=== PATIENT | male | born 1955 | race Caucasian/White ===

== ENCOUNTER 2023-04-01 08:07 | Outpatient (CLI) | payer OTHER, SELFPAY | END 2023-04-01 08:08 | disposition home or self-care (01) | PROVIDERS: PCP Family Medicine; Visit Provider Family Medicine | DX: E13.9 Other specified diabetes mellitus without complications (principal); I10 Essential (primary) hypertension; E78.5 Hyperlipidemia, unspecified; R97.20 Elevated prostate specific antigen [PSA]; Z13.0 Encounter for screening for diseases of the blood and blood-forming organs and certain disorders involving the immune mechanism; Z80.42 Family history of malignant neoplasm of prostate | CPT/HCPCS: 80048; 80061; 84153 ==

== ENCOUNTER 2023-10-17 14:18 | Outpatient (CLI) | payer OTHER, SELFPAY ==
--- OUTSIDE RECORDS SUMMARY | 2023-10-17 14:23 | XMS_ITS | Clinical Summary ---
Author Name Unknown Organization [facility] Address [address] [place] [address] Care Team Providers Care Finishing Pan Operator Name Role Phone Unavailable Primary Care Provider Unavailabl e Source Comments Patient records contain information from all sites at [facility]. For routine questions regarding patient records, call [phone] during business hours, M-F 8:00 AM - 5:00 PM Central Time. Record requests for emergency care only can be directed to [phone] at any time.[facility] Allergies No known active allergies Medications Medication Sig Dispensed Refills Start Date End Date Status amLODIPine (NORVASC) 10 mg tablet Take 10 mg by mouth daily. 04/14/2023 Active atenoloL (TENORMIN) 50 mg tablet Take 1 tablet by mouth daily. 01/30/2023 Active Trulicity 3 mg/0.5 mL injection Inject 3 mg under the skin every 7 (seven) days. 03/28/2023 Active hydroCHLOROthiazide (HYDRODIURIL) 25 mg tablet Take 1 tablet by mouth 2 (two) times a day. 03/27/2023 Active lisinopriL (PRINIVIL,ZESTRIL) 40 mg tablet Take 40 mg by mouth daily. 01/30/2023 Active metFORMIN (GLUCOPHAGE) 1,000 mg tablet Take 1,000 mg by mouth 2 (two) times a day with meals. 01/30/2023 Active repaglinide (PRANDIN) 2 mg tablet Take 2 mg by mouth 2 (two) times a day before breakfast and dinner. 04/14/2023 Active simvastatin (ZOCOR) 20 mg tablet Take 20 mg by mouth at bedtime. 04/14/2023 Active pioglitazone (ACTOS) 15 mg tablet Take 15 mg by mouth daily. 02/02/2023 Active Active Problems Problem Noted Date Diagnosed Date Primary Malignant Neoplasm Of Prostate 3 Cancer Staging:Clinical stage from 05/09/2023:Stage Unknown(cT2a, cNX, cM0, PSA: 6.8, Grade Group: 1) - Signed by Greer Sarah APRN, C.N.P. on 06/06/2023 Hypertension Essential Primary 05/13/2023 Elevated Prostate-Specific Antigen 05/13/2023 Hyperlipidemia 05/13/2023 Other Specified Diabetes Mellitus Without Compli cations 05/13/2023 Pityriasis Versicolor 05/13/2023 Immunizations Name Administration Dates Next Due Influenza high dose QV(65 years or older) (PF) 1 Influenza, Injectable, Quadrivalent 04/20/2021,1 08/14/2018 PPSV23(Discontinued) 10/29/2009 RZV (SHINGRIX) 04/01/2023,04/20/2021 Td (Adult), adsorbed 06/13/2019 Td Preservative Free (TENIVAC, DECAVAC) 06/13/20 19 Tdap 10/29/2009 influenza vaccine QV(FLUBLOK) (18 years or older ) (PF) 04/20/2021,06/13/2019 influenza vaccine quad (FLUZ ONE/FLUARIX) (6 months and older)(PF) 05/05/2018,05/14/2015 Social History Tobacco Use Types Packs/Day Years Used Date Smoking Tobacco: Former Cigarettes 0.3 6 0 06/27/1965 - 06/27/1971 Pipe 06/27/1965 - 0 06/27/1971 Cigars 06/27/1965 - 0 06/27/1971 Smokeless Tobacco: Never Tobacco Cessation:Counseling Given: Not Answered Alcohol Use Standard Drinks/Week Comments Not Currently 0 (1 standard drink = 0.6 oz pur e alcohol) Nutrition Answer Date Recorded Nutrition: EVOO Fat Source Unknown 04/11 Nutrition: Servings of Fruits/Vegetables per Day Not on file 04/11/2023 Dental Answer Date Recorded Dental: Regular Dentist Unknown 04/11/20 23 Sex and Gender Information Value Date Recorded Sex Assigned at Not on file Gender Identity Not on file Sexual Orientation Not on file Plan of Treatment Upcoming Encounters Date Type Department Care Team (Late st Contact Info) Description 11/04/2023 8:30 AM CDT Appointment Department of Laboratory Medicine in [address] [phone] Greer Sarah APRN, C.N.P. [address] [place] [phone] 11/14/2023 1:30 PM CDT Office Visit Department of Urology in [place], [place] [address] [facility] [phone] Greer Sarah APRN, C.N.P. [address] [place] [phone] Health Maintenance Due Date Last Done Comments Abdominal Aortic Aneurysm (A AA) Screen 1956 CT Colonography 1956 Cologuard 1956 Colonoscopy 1956 Colorectal Cancer Screening 1956 Creatinine Level (Kidney Fun ction Test) 1956 Diabetic Office Visit with F oot Exam 1956 Dilated Eye Exam 1956 FIT 1956 Hemoglobin A1C 1956 Hepatitis C Screening 1956 Lipid (Cholesterol) Screening 1956 Office Visit for Blood Press ure Check / Re-check 1956 Potassium Level 1956 Sodium Level 1956 Urine Albumin 1956 Pneumococcal vaccine (65+ ye ars) (2 of 2 - PCV) 10/29/2010 10/29/2009 Hepatitis B Vaccines (1 of 3 - Risk 3-dose series) 2016 COVID-19 Vaccine (2 - 2022-2 4 season) 2023 01/26/2021 Depression Screening (Annual PHQ-2) 06/27/2023 Fall Risk Screen (Annual) 06/27/2023 DTaP,Tdap,and Td Vaccines (4 - Td or Tdap) 06/13/2029 06/13/2019, 06/13/2019, 10/29/2009 Influenza Vaccine Completed 04/01/2023, , 04/20/2021, Additional history exists Zoster Vaccines Completed 04/01/2023, 04/20/2021
--- OUTSIDE RECORDS SUMMARY | 2023-10-17 14:24 | XMS_ITS ---
Author Name Unknown Organization [facility] Address [address] [place] [address] Care Team Providers Care Postal Support Employee Name Role Phone Unavailable Unavailable Unavailable Surgery Details Not on file Complications Check Surgery Details section. Procedure Estimated Blood Loss Check Surgery Details section. Procedure Findings Check Surgery Details section. Procedure Specimens Taken Check Surgery Details section.
--- OUTSIDE RECORDS SUMMARY | 2023-10-17 14:24 | XMS_ITS | Referral Summary ---
Author Name Unknown Organization [facility] Address [address] [place] [address] Care Team Providers Care Calender Runner Name Role Phone Unavailable Primary Care Provider Unavailabl e Source Comments Patient records contain information from all sites at [facility]. For routine questions regarding patient records, call [phone] during business hours, M-F 8:00 AM - 5:00 PM Central Time. Record requests for emergency care only can be directed to [phone] at any time.[facility] Allergies No known active allergies Medications [...] CDT Appointment Department of Laboratory Medicine in [address] [phone] Greer Sarah APRN, C.N.P. [address] [place] [phone] 11/14/2023 1:30 PM CDT Office Visit Department of Urology in [place], [place] [address] [facility] [place] [phone] Greer Sarah APRN, C.N.P. [address] [place] [phone]
== END 2023-10-17 14:19 | disposition home or self-care (01) ==
PROVIDERS: PCP Family Medicine; Visit Provider Family Medicine
DX: I10 Essential (primary) hypertension (principal); R42 Dizziness and giddiness
CPT/HCPCS: 80048; 84443

== ENCOUNTER 2023-11-16 16:05 | Outpatient (CLI) | payer OTHER, SELFPAY ==
--- OUTSIDE RECORDS SUMMARY | 2023-11-20 08:36 | XMS_ITS | Referral Summary ---
Author Organization [facility] Address [address] [place] [address] Care Team Providers Care Automatic Line Set Up Mechanic Name Role Phone Unavailable Primary Care Provider Unavailabl e Source Comments Patient records contain information from all sites at [facility]. For routine questions regarding patient records, call [phone] during business hours, M-F 8:00 AM - 5:00 PM Central Time. Record requests for emergency care only can be directed to [phone] at any time.[facility] Encounters Date Type Department Care Team Description 11/14/2023 1:30 PM CDT Office Visit Department of Urology in [address] [address] Greer Sarah APRN, C.N.P. Primary Malignant Neoplasm Of Prostate (HCC) (Primary Dx); Elevated Prostate-Specific Antigen 11/04/2023 8:07 AM CDT - 11/04/2023 11:59 PM CDT Hospital Encounter Department of Laboratory Medicine in [address] [address] Greer Sarah APRN, C.N.P. Primary Malignant Neoplasm [...] drink = 0.6 oz pur e alcohol) [facility] Utilities Answer Date Recorded In the past 12 months has th e [employer], gas, oil, or water [employer] threatened to shut off services in your [...] your living situation today? I have a [facility] place to live 11/11/2023 Sex and [...] method is an electrochemiluminescence assay manufactured by [employer] and performed on the Modular or Roopa system. Values obtained with different assay methods or kits may be different and cannot be used interchangeably. Test results cannot be interpreted as absolute evidence for the presence or absence of malignant disease. Blood (Blood, Venous) 11/04/2023 10:01 AM CDT 11/04/2023 3:22 PM CDT Greer Sarah APRN, C.N.P. LAB BLOOD ADD-ON [facility] [address] [place] [address], [facility] OW[facility] [place] [address] [place] [address] from Last 3 Months
--- OUTSIDE RECORDS SUMMARY | 2023-11-20 08:36 | XMS_ITS | Clinical Summary ---
Author Organization [facility] Address [address] [place] [address] Care Team Providers Care Crowning Hammer Operator Name Role Phone Unavailable Primary Care Provider Unavailabl e Source Comments Patient records contain information from all sites at [facility]. For routine questions regarding patient records, call [phone] during business hours, M-F 8:00 AM - 5:00 PM Central Time. Record requests for emergency care only can be directed to [phone] at any time.[facility] Allergies No known active allergies Medications [...] CDT Office Visit Department of Urology in [address] [address] Greer Sarah APRN, C.N.P. Primary Malignant Neoplasm Of Prostate (HCC) (Primary Dx); Elevated Prostate-Specific Antigen 11/04/2023 8:07 AM CDT - 11/04/2023 11:59 PM CDT Hospital Encounter Department of Laboratory Medicine in [address] [address] Greer Sarah APRN, C.N.P. Primary Malignant Neoplasm [...] drink = 0.6 oz pur e alcohol) [facility] Utilities Answer Date Recorded In the past 12 months has e [employer], gas, oil, or water [employer] threatened to shut off services in your [...] your living situation today? I have a [facility] place to live 11/11/2023 Sex [...] Greer Sarah APRN, C.N.PJuan LAB BLOOD ADD-ON [facility] [address] [place] [address], [facility] OW[facility] [place] [address] [place] [address] from Last 3 Months
--- OUTSIDE RECORDS SUMMARY | 2023-11-20 08:36 | XMS_ITS ---
Author Organization [facility] Address [address] [place] [address] Care Team Providers Care Plastic Products Sales Representative Name Role Phone Unavailable Unavailable Unavailable Surgery Details Not on file Complications Check Surgery Details section. Procedure Estimated Blood Loss Check Surgery Details section. Procedure Findings Check Surgery Details section. Procedure Specimens Taken Check Surgery Details section.
--- OUTSIDE RECORDS SUMMARY | 2023-11-20 08:36 | XMS_ITS | Encounter Summary ---
Author Organization [facility] Address [address] [place] [address] Care Team Providers Care Solutions Specialist Name Role Phone Unavailable Primary Care Provider Unavailabl e Reason for Referral * Outpatient (Routine) - Authorized Specialty Diagnoses / Procedures Referred By Antonino stevens Referred To Contact Urology Greer Sarah APRN, C.N.P. [address] [address] [facility] Region Referral ID Status Reason Start Date Expiration Date V isits Requested Visits Authorized [id number] Authorized 11/14/2023 05/15/2025 1 1 Reason for Visit * Reason Comments Follow-up 6 month Prostate Cancer * Outpatient (Routine) - Closed Specialty Diagnoses / Procedures Referred By Antonino stevens Referred To Contact Urology Greer Sarah APRN, C.N.P. [address] [address] [facility] Region Referral ID Status Reason Start Date Expiration Date Visits Re quested Visits Authorized [id number] Closed 05/13/2023 05/12/2026 1 1 Encounter Details Date Type Department Care Team (Late st Contact Info) Description 11/14/2023 1:30 PM CDT Office Visit Department of Urology in [place] [address] [place] [phone] Greer Sarah APRN, C.N.P. [address] [address] Primary Malignant Neoplasm Of Prostate [...] drink = 0.6 oz pur e alcohol) [facility] Utilities Answer Date Recorded In the past 12 months has th e [employer], gas, oil, or water [employer] threatened to shut off services in your [...] 2023 that showed a small amount of [place] 3 + 3 prostate cancer on the [...]
--- OUTSIDE RECORDS SUMMARY | 2023-11-20 08:36 | XMS_ITS | Encounter Summary ---
Author Organization [facility] Address [address] [place] [address] Care Team Providers Care Glazier Supervisor Name Role Phone Unavailable Primary Care Provider Unavailabl e Encounter Details Date Type Department Care Team (Latest Contact Info) Description 11/04/2023 8:07 AM CDT - 11/04/2023 11:59 PM CDT Hospital Encounter Department of Laboratory Medicine in [address] [id number] Greer Sarah, MARINE ENGINEER [employer], C.N.P. [address] [address] Primary Malignant Neoplasm Of Prostate (HCC) Discharge [...] Greer Sarah APRN, C.N.P. LAB BLOOD ADD-ON [facility] [address], [place] [address], [facility] [facility] in [place] [address] [place] [address] documented in this encounter Visit Diagnoses Diagnosis Primary Malignant Neoplasm Of Prostate (HCC) documented in this encounter
== END 2023-11-16 16:06 | disposition home or self-care (01) ==
LOC: AMB 11-20 08:34
PROVIDERS: PCP Family Medicine; Visit Provider Emergency Medicine
DX: R55 Syncope and collapse (principal)
CPT/HCPCS: A0425; A0427

== ENCOUNTER 2023-11-16 16:35 | Emergency (ER) | payer OTHER, SELFPAY ==
[2023-11-16] VITALS (19 sets, daily range): BP systolic 108–145; BP diastolic 64–86; PULSE 78–92; RESP 16–18; TEMP 36.2; O2SAT 93–98; BMI 28.3
[2023-11-16 16:58] LABS: Lactate* 3.9 mmol/L (0.5-1.9)
[2023-11-16 16:59] LABS: Basophils Percent Auto 0.3 % (0.0-3.0); Eosinophils Percent Auto 2.4 % (0.0-7.0); Hematocrit 45.6 % (37.0-53.0); Hemoglobin* 15.1 gm/dL (13.5-17.5); Immature Granulocytes Pct Auto 1.5 %; Lymphocytes Percent Auto 16.9 % (20-44); Mean Corpuscular HGB Conc 33 gm/dL (32-36); Mean Corpuscular Hemoglobin 29 pg (26-34); Mean Corpuscular Volume 88 fL (80-100); Monocytes Percent Auto 7.7 % (0.0-11.0); Neutrophils Percent Auto 71.2 % (42.0-72.0); Platelet Count* 200 K/uL (140-440); RDW Coefficient of Variation % 13.8 % (11.5-15.5); Red Blood Count 5.18 m/uL (4.30-5.90); White Blood Count* 11.63 K/uL (4.50-11.00)
--- NOTE | 2023-11-16 17:01 | CRLHL7_ITS ---
For Patients: As a result of the Century Cures Act, medical imaging exams and procedure reports are released immediately into your electronic medical record. You may view this report before your referring provider. If you have questions, please contact your health care provider. Indication: Neck pain. Syncopal episode. Trauma. Technique: Noncontrast axial CT of the cervical spine with coronal and sagittal reformats are provided. No comparisons. Findings: The overall stature, alignment of the cervical spine is within normal limits. No convincing evidence of suspicious bony fragments narrowing the central canal or neural foramina. Prevertebral soft tissues, cervical airway, dens and lateral masses are within normal limits. Moderate to severe scattered degenerative changes of the cervical spine. Impression: 1. No convincing radiographic evidence of acute osseous injury. 2. Moderate to severe scattered degenerative changes of the cervical spine. Please note that all CT scans at this facility use dose modulation, iterative reconstruction, and/or weight-based dosing when appropriate to reduce radiation dose to as low as reasonably achievable. Dictated by James Rivera MD @ 11/16/2023 6:04:47 PM (Electronically Signed)
--- NOTE | 2023-11-16 17:01 | CRLHL7_ITS ---
For Patients: As a result of the Century Cures Act, medical imaging exams and procedure reports are released immediately into your electronic medical record. You may view this report before your referring provider. If you have questions, please contact your health care provider. INDICATION: Syncopal episode TECHNIQUE: Non-contrast CT of the head is submitted. No comparisons. FINDINGS: The ventricles, sulci and gyri are of normal size, shape and contour. Midline structures are centrally located. No convincing evidence of intra- or extra-axial fluid collections. IMPRESSION: 1. No radiographic evidence of acute intracranial abnormalities. Please note that all CT scans at this facility use dose modulation, iterative reconstruction, and/or weight-based dosing when appropriate to reduce radiation dose to as low as reasonably achievable. Dictated by James Rivera MD @ 11/16/2023 6:03:02 PM (Electronically Signed)
[2023-11-16 17:04] LABS: Glucose, Point-of-Care* 195 mg/dl (60-115)
[2023-11-16 17:10] LABS: Slide Review Reflex No
[2023-11-16 17:19] LABS: Chloride* 102 mmol/L (96-114); Sodium* 138 mmol/L (135-149)
[2023-11-16] MEDS: LACTATED RINGERS 1000 ML 1,000 ML IV (17:19)
[2023-11-16 17:20] LABS: Potassium* 3.8 mmol/L (3.6-5.1)
[2023-11-16 17:22] LABS: Alanine Aminotransferase* 19 U/L (4-50); Alkaline Phosphatase* 57 U/L (40-150); Anion Gap 13 mEq/L (7-15); Aspartate Amino Transferase* 24 U/L (12-35); Bilirubin Total* 0.8 mg/dL (0.1-1.5); Blood Urea Nitrogen* 29 mg/dL (7-30); Carbon Dioxide* 23 mmol/L (20-32); Creatinine* 1.2 mg/dL (0.5-1.5); Est. Creatinine Clearance* 57.79; Estimated Glomerular Filt Rate 66 ml/min; Glucose* 197 mg/dL (60-115); Total Protein* 7.9 g/dL (6.0-8.3)
[2023-11-16 17:23] LABS: Calcium* 9.5 mg/dL (8.4-10.6)
--- NOTE | 2023-11-16 17:32 | ED.SYNCOPE ---
HPI - Syncope General Chief Complaint: Syncope/Fainted Stated Complaint: loss of consciousness Time Seen by Provider: 11/16/23 16:40 Source: patient and EMS Mode of arrival: EMS Limitations: no limitations History of Present Illness HPI narrative: Patient is a 68-year-old male with a history of type 2 diabetes, hypertension, hyperlipidemia presenting to the emergency department for an episode syncope. 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 He walked back inside and the time he got to 1 of the trucks he passed out. He states this was witnessed by 1 of his coworkers. He is unsure how long he was unconscious for. He felt kind of groggy when he woke up but is now back to normal. EMS states he was answering all questions appropriately. He states this happened to him 3 or 4 times in the past in says it was heat stroke. Last time it occurred was 15 years ago. States that felt just like this. It is only about 69? F outside. Denies lightheadedness, dizziness, fevers, chills, chest pain, shortness of breath, abdominal pain, weakness, numbness. States he feels back to normal at this time. Related Data Previous Rx's ?Medication ?Instructions ?Recorded amlodipine 10 mg tablet 10 mg PO DAILY #90 tabs 04/01/23 atenolol 50 mg tablet 50 mg PO DAILY #90 tabs 04/01/23 hydrochlorothiazide 25 mg tablet 25 mg PO BID #180 tabs 04/01/23 lisinopril 40 mg tablet 40 mg PO DAILY #90 tabs 04/01/23 metformin 1,000 mg tablet 1,000 mg PO BID #180 tabs 04/01/23 pioglitazone 15 mg tablet 15 mg PO QDAY #90 tabs 04/01/23 repaglinide 2 mg tablet 2 mg PO BID #180 tabs 04/01/23 simvastatin 20 mg tablet 20 mg PO QPM #90 tabs 04/01/23 pioglitazone 30 mg tablet 30 mg PO QDAY #90 tabs 04/05/23 dulaglutide 4.5 mg/0.5 mL 4.5 mg (0.5 mL) subcut QWEEK #2 mL 10/19/23 [facility] dulaglutide 3 mg/0.5 mL 3 mg (0.5 mL) subcut QWEEK #2 mL 11/11/23 subcutaneous pen injector (Trulicity) Allergies Allergy/AdvReac Type Severity Reaction Status Date / Time No Known Drug Allergies Allergy Verified 10/17/23 13:42 Review of Systems Status of ROS: Reports: 10 or more systems reviewed and unremarkable except as noted in History and below PFSH PFSH Surgical History H/O prostate biopsy ?Z98.890 - Other specified postprocedural states (ICD-10) Family History Other Prostate cancer Social History What is your current living situation?: I presently have a place to live Problems where you live: declined to answer In the past 12 months, utilities in danger of being shut off: no In past 12 months, lack of transportation kept you from medical appts, meetings, work, or getting things needed for daily living: no In the past 12 mos, have been you worried that your food would run out before you had money to buy more?: never true In the past 12 mos, the food you bought just didn't last and you didn't have money to buy more?: declined to answer Smoking Status: Unknown if ever smoked How often does anyone, including family, friends and others, physically hurt you: never How often does anyone, including family, friends and others, insult or talk down to you: rarely How often does anyone, including family, friends and others, threaten you with harm: never How often does anyone, including family, friends and others, scream or curse at you: rarely Little interest or pleasure in doing things: not at all Feeling down, depressed, or hopeless: several days Exam Narrative: Exam Narrative: Const: Well-nourished, Well-developed, in no distress Eyes: PERRL, no conjunctival injection, and symmetrical lids HENT: Atraumatic external nose and ears. Moist mucous membranes. Neck: Symmetric, trachea midline, No thyromegaly. CVS: RRR, No murmurs or gallops. Peripheral pulses 2+ and equal in all extremities RESP: Unlabored respiratory effort. Clear to auscultation bilaterally. GI: Nontender/Nondistended, No rebound or guarding. MSK:Extremities w/o deformity, Normal Active ROM Skin: Warm, Dry. No rashes or lesions. Neuro: Normal Muscle tone, No focal neurological deficits. Psych: Awake, Alert, & Oriented x3. Appropriate mood and affect. Const: Vital Signs, click to edit/add: Vital Signs - 24 hr 11/16/23 16:40 11/16/23 17:51 11/16/23 17:52 Temperature 97.1 F L Pulse Rate 80 79 Pulse Rate [Right Pulse Oximeter] 80 Respiratory Rate 18 Blood Pressure 118/73 Blood Pressure [Ri ght Upper Arm] 145/86 H Pulse Oximetry 95 97 95 Oxygen Delivery Me thod Room Air 11/16/23 18:00 11/16/23 18:02 11/16/23 18:15 Temperature Pulse Rate 78 79 83 Pulse Rate [Right Pulse Oximeter] Respiratory Rate Blood Pressure 108/64 Blood Pressure [Ri ght Upper Arm] Pulse Oximetry 94 94 95 Oxygen Delivery Me thod 11/16/23 18:30 11/16/23 18:31 11/16/23 18:45 Temperature Pulse Rate 86 85 86 Pulse Rate [Right Pulse Oximeter] Respiratory Rate Blood Pressure 120/72 Blood Pressure [Ri ght Upper Arm] Pulse Oximetry 97 98 96 Oxygen Delivery Me thod 11/16/23 19:00 11/16/23 19:02 Temperature Pulse Rate 86 84 Pulse Rate [Right Pulse Oximeter] Respiratory Rate Blood Pressure 121/71 Blood Pressure [Ri ght Upper Arm] Pulse Oximetry 95 95 Oxygen Delivery Me thod Course Vital Signs Vital signs: Initial Vital Signs Temperature 97.1 F L 11/16/23 16:40 Temperature Source Temporal Artery Scan 11/16/23 16:40 Pulse Rate 80 11/16/23 16:40 Respiratory Rate 18 11/16/23 16:40 Blood Pressure 145/86 H 11/16/23 16:40 Blood Pressure Mean 105 11/16/23 16:40 Blood Pressure Position Sitting 11/16/23 16:40 Pulse Oximetry 95 11/16/23 16:40 Oxygen Delivery Method Room Air 11/16/23 16:40 Vital Signs Temperature 97.1 F L 11/16/23 16:40 Pulse Rate 80 11/16/23 16:40 Respiratory Rate 18 11/16/23 16:40 Blood Pressure 145/86 H 11/16/23 16:40 Pulse Oximetry 95 11/16/23 16:40 Oxygen Delivery Method Room Air 11/16/23 16:40 Temperature 97.1 F L 11/16/23 16:40 Pulse Rate 84 11/16/23 19:02 Respiratory Rate 18 11/16/23 16:40 Blood Pressure 121/71 11/16/23 19:02 Pulse Oximetry 95 11/16/23 19:02 Oxygen Delivery Method Room Air 11/16/23 16:40 Medications Administered Medications: Generic Name Dose Route Start Last Admin Trade Name Freq PRN Reason Stop Dose Admin Sodium Chloride 1,000 mls @ 1,000 mls/hr 11/16/23 19:45 11/16/23 18:55 0.9 % Sodium Chloride 1000 Ml IV 11/16/23 20:44 1,000 mls/hr .Q1H SORAYA Administration Discontinued Medications Generic Name Dose Route Start Last Admin Trade Name Freq PRN Reason Stop Dose Admin Lactated Ringer's 1,000 mls @ 1,000 mls/hr 11/16/23 17:01 11/16/23 18:50 Lactated Ringers 1000 Ml IV 11/16/23 18:00 Infused .Q1H ONE Infusion MDM - Syncope MDM Narrative Medical decision making narrative: Patient is a 68-year-old male presenting to the emergency department for syncopal episode. He thinks it is related that he had heat exhaustion but considering the weather outside this seems unlikely. He did states he was doing lots of physical labor so could possibly more be more dehydration. Will also do an EKG to look for signs of arrhythmias. CBC, lactate, troponin, point of care glucose, CMP all ordered. Since he does not know if he hit his head when he fell is CT scan of head cervical spine also ordered Initial lactate came back at 3.9. Concern is otherwise asymptomatic with normal vital signs seems like it could be secondary to dehydration from heavy work. A L of fluids was given. Point of care troponin was 0 and point of care glucose was 195. This seems unlikely to be a hypoglycemic episode. Cbc shows no concerning abnormalities. CMP shows no concerning abnormalities. Electrolytes appear normal. Considering he has no signs of infection I do believe this lactate is secondary to dehydration. Repeat lactate was 2.3. Will give another L of fluids and he is otherwise doing well and will be discharged home. Imaging reviewed by myself and the radiologist shows no concerning abnormalities. EKG showed no concerning abnormalities. He was on the heart monitor no other arrhythmias were seen. He is agreeable to this plan. Lab Data Labs: Lab Results 11/16/23 11/16/23 11/16/23 Range/Units 16:40 16:50 16:58 WBC 11.63 H (4.50-11.00) K/uL RBC 5.18 (4.30-5.90) m/uL Hgb 15.1 (13.5-17.5) gm/dL Hct 45.6 (37.0-53.0) % MCV 88 (80-100) fL MCH 29 (26-34) pg MCHC 33 (32-36) gm/dL RDW Coeff of Edvin 13.8 (11.5-15.5) % Plt Count 200 (140-440) K/uL Neut % (Auto) 71.2 (42.0-72.0) % Lymph % (Auto) 16.9 L (20-44) % Milam % (Auto) 7.7 (0.0-11.0) % Eos % (Auto) 2.4 (0.0-7.0) % Baso % (Auto) 0.3 (0.0-3.0) % Neut # (Auto) 8.30 H (1.7-7.0) K/uL Lymph # (Auto) 2.00 (0.90-2.90) K/uL Milam # (Auto) 0.90 (0.00-0.90) K/UL Eos # (Auto) 0.30 (0.00-0.50) K/uL Baso # (Auto) 0.00 (0.00-0.30) K/uL Abs Immat Gran (auto) 0.20 (0.00-0.30) K/uL Imm/Tot Granulo (auto) 1.5 % Sodium 138 (135-149) mmol/L Potassium 3.8 (3.6-5.1) mmol/L Chloride 102 (96-114) mmol/L Carbon Dioxide 23 (20-32) mmol/L Anion Gap 13 (7-15) mEq/L BUN 29 (7-30) mg/dL Creatinine 1.2 (0.5-1.5) mg/dL Estimated Creat Clear 57.79 Estimated GFR 66 ml/min Glucose 197 H (60-115) mg/dL Lactate 3.9 H (0.5-1.9) mmol/L Calcium 9.5 (8.4-10.6) mg/dL Total Bilirubin 0.8 (0.1-1.5) mg/dL AST 24 (12-35) U/L ALT 19 (4-50) U/L Alkaline Phosphatase 57 (40-150) U/L Total Protein 7.9 (6.0-8.3) g/dL Albumin 5.0 (3.3-5.0) g/dL POC Glucose 195 H (60-115) mg/dl POC Troponin I 0.00 L (0.01-0.04) ng/ml 11/16/23 Range/Units 19:00 WBC (4.50-11.00) K/uL RBC (4.30-5.90) m/uL Hgb (13.5-17.5) gm/dL Hct (37.0-53.0) % MCV (80-100) fL MCH (26-34) pg MCHC (32-36) gm/dL RDW Coeff of Edvin (11.5-15.5) % Plt Count (140-440) K/uL Neut % (Auto) (42.0-72.0) % Lymph % (Auto) (20-44) % Milam % (Auto) (0.0-11.0) % Eos % (Auto) (0.0-7.0) % Baso % (Auto) (0.0-3.0) % Neut # (Auto) (1.7-7.0) K/uL Lymph # (Auto) (0.90-2.90) K/uL Milam # (Auto) (0.00-0.90) K/UL Eos # (Auto) (0.00-0.50) K/uL Baso # (Auto) (0.00-0.30) K/uL Abs Immat Gran (auto) (0.00-0.30) K/uL Imm/Tot Granulo (auto) % Sodium (135-149) mmol/L Potassium (3.6-5.1) mmol/L Chloride (96-114) mmol/L Carbon Dioxide (20-32) mmol/L Anion Gap (7-15) mEq/L BUN (7-30) mg/dL Creatinine (0.5-1.5) mg/dL Estimated Creat Clear Estimated GFR ml/min Glucose (60-115) mg/dL Lactate 2.3 H (0.5-1.9) mmol/L Calcium (8.4-10.6) mg/dL Total Bilirubin (0.1-1.5) mg/dL AST (12-35) U/L ALT (4-50) U/L Alkaline Phosphatase (40-150) U/L Total Protein (6.0-8.3) g/dL Albumin (3.3-5.0) g/dL POC Glucose (60-115) mg/dl POC Troponin I (0.01-0.04) ng/ml Imaging Data CT scan head: Attestation: I have reviewed the pertinent imaging results. Radiologist's impression: 1. No radiographic evidence of acute intracranial abnormalities. Please note that all CT scans at this facility use dose modulation, iterative reconstruction, and/or weight-based dosing when appropriate to reduce radiation dose to as low as reasonably achievable. Dictated by James Rivera MD @ 11/16/2023 6:03:[address] scans cervical spine: Attestation: I have reviewed the pertinent imaging results. Radiologist's impression: 1. No convincing radiographic evidence of acute osseous injury. 2. Moderate to severe scattered degenerative changes of the cervical spine. Please note that all CT scans at this facility use dose modulation, iterative reconstruction, and/or weight-based dosing when appropriate to reduce radiation dose to as low as reasonably achievable. Dictated by James Rivrea MD @ 11/16/2023 6:04:47 PM ECG Data Attestation: I personally reviewed and interpreted this ECG as follows: Prior ECG tracings: available for review Interpretation: Normal sinus rhythm with a first-degree AV block, 83 beats per minute, left axis deviation, right bundle-branch block, no ST or T-wave abnormalities. Appears similar to previous EKG on file Discharge Plan Discharge Clinical Impression: Dehydration Syncope Qualifiers: Syncope type: unspecified Qualified Code(s): R55 - Syncope and collapse Patient Disposition: Home, Self-Care Condition: Stable Instructions: Syncope (ED) Additional Instructions: I believe he has syncopal episode related to dehydration. Make sure you stay well hydrated. Return to emergency department for new or worsening symptoms. If he continued to have feelings of lightheadedness or dizziness he should either return to emergency department or follow-up with your primary care provider. Prescriptions: No Action amlodipine 10 mg tablet 10 mg PO DAILY Qty: 90 3RF atenolol 50 mg tablet 50 mg PO DAILY Qty: 90 3RF hydrochlorothiazide 25 mg tablet 25 mg PO BID Qty: 180 3RF lisinopril 40 mg tablet 40 mg PO DAILY Qty: 90 3RF metformin 1,000 mg tablet 1,000 mg PO BID Qty: 180 3RF pioglitazone 15 mg tablet 15 mg PO QDAY Qty: 90 3RF repaglinide 2 mg tablet 2 mg PO BID Qty: 180 3RF simvastatin 20 mg tablet 20 mg PO QPM Qty: 90 3RF pioglitazone 30 mg tablet 30 mg PO QDAY Qty: 90 3RF Trulicity 4.5 mg/0.5 mL pen injector 4.5 mg subcut QWEEK Qty: 2 3RF Trulicity 3 mg/0.5 mL pen injector 3 mg subcut QWEEK Qty: 2 0RF Follow Up/Referrals: Kirill Cobos MD [Primary Care Provider] - Stand Alone Forms: [facility] Info Instructions
[2023-11-16] MEDS: 0.9 % SODIUM CHLORIDE 1000 ml 1,000 ML IV (18:55)
--- OUTSIDE RECORDS SUMMARY | 2023-11-16 18:55 | XMS_ITS ---
Author Organization [facility] Address [address] [place] [address] Care Team Providers Care Weight Caller Name Role Phone Unavailable Unavailable Unavailable Surgery Details Not on file Complications Check Surgery Details section. Procedure Estimated Blood Loss Check Surgery Details section. Procedure Findings Check Surgery Details section. Procedure Specimens Taken Check Surgery Details section.
--- OUTSIDE RECORDS SUMMARY | 2023-11-16 18:55 | XMS_ITS | Encounter Summary ---
Author Organization [facility] Address [address] [place] [address] Care Team Providers Care Route Salesperson Name Role Phone Unavailable Primary Care Provider Unavailabl e Encounter Details Date Type Department Care Team (Latest Contact Info) Description 11/04/2023 8:07 AM CDT - 11/04/2023 11:59 PM CDT Hospital Encounter Department of Laboratory Medicine in [address] [phone] Greer Sarah, GROUND EQUIPMENT MECHANIC, C.N.P. [address], [place] [address] Primary Malignant Neoplasm Of Prostate (HCC) Discharge Disposition: Home or Self Care Social History Tobacco Use Types Packs/Day Years Used Date Smoking Tobacco: Former Cigarettes 0.3 6 0 06/27/1965 - 06/27/1971 Pipe 06/27/1965 - 0 06/27/1971 Cigars 06/27/1965 - 0 06/27/1971 Smokeless Tobacco: Never Alcohol Use Standard Drinks/Week Comments Not Currently 0 (1 standard drink = 0.6 oz pur e alcohol) Nutrition Answer Date Recorded Nutrition: EVOO Fat Source Unknown 04/11 Nutrition: Servings of Fruits/Vegetables per Day Not on file 04/11/2023 Dental Answer Date Recorded Dental: Regular Dentist Unknown 04/11/20 Sex and Gender Information Value Date Recorded Sex Assigned at Male 11/11/2023 10:31 AM CDT Gender Identity Male 11/11/2023 10:31 AM CDT Sexual Orientation Straight 11/11/2023 10 :31 AM CDT documented as of this encounter Medications at Time of Discharge Medication Sig Dispensed Refills Start Date End Date amLODIPine (NORVASC) 10 mg tablet Take 10 mg by mouth daily. 04/14/2023 atenoloL (TENORMIN) 50 mg tablet Take 1 tablet by mouth daily. 01/30/2023 hydroCHLOROthiazide (HYDRODIURIL) 25 mg tablet Take 1 tablet by mouth 2 (two) times a day. 03/27/2023 lisinopriL (PRINIVIL,ZESTRIL) 40 mg tablet Take 40 mg by mouth daily. 01/30/2023 metFORMIN (GLUCOPHAGE) 1,000 mg tablet Take 1,000 mg by mouth 2 (two) times a day with meals. 01/30/2023 pioglitazone (ACTOS) 15 mg tablet Take 15 mg by mouth daily. 02/02/2023 repaglinide (PRANDIN) 2 mg tablet Take 2 mg by mouth 2 (two) times a day before breakfast and dinner. 04/14/2023 simvastatin (ZOCOR) 20 mg tablet Take 20 mg by mouth at bedtime. 04/14/2023 Trulicity 3 mg/0.5 mL injection Inject 3 mg under the skin every 7 (seven) days. 03/28/2023 documented as of this encounter Plan of Treatment Not on file documented as of this encounter Procedures Procedure Name Priority Date/Time Associated Diagnosis Comments PROSTATE-SPECIFIC AG (PSA) DIAGNOSTIC, S Routine 11/04/2023 10:01 AM CDT Primary Malignant Neoplasm Of Prostate (HCC) documented in this encounter Results * (ABNORMAL) PSA (Prostate-Specific Antigen), Diagnostic (11/04/2023 10:01 AM CDT) Prostate-Specific Ag 11.0(H) <=4.5 ng/mL 11/04/2023 3:53 PM CDT [facility] Comment: ----ADDITIONAL INFORMATION---- The testing method is an electrochemiluminescence assay manufactured by [employer] and performed on the Modular or Roopa system. Values obtained with different assay methods or kits may be different and cannot be used interchangeably. Test results cannot be interpreted as absolute evidence for the presence or absence of malignant disease. Blood (Blood, Venous) 11/04/2023 10:01 AM CDT 11/04/2023 3:22 PM CDT Greer Sarah APRN, C.N.P. LAB BLOOD ADD-ON [facility] [address] [address], [facility] [place] [address] [place] [address] documented in this encounter Visit Diagnoses Diagnosis Primary Malignant Neoplasm Of Prostate (HCC) documented in this encounter
--- OUTSIDE RECORDS SUMMARY | 2023-11-16 18:55 | XMS_ITS | Clinical Summary ---
Author Organization [facility] Address [address] [place] [address] Care Team Providers Care Psychological Examiner Name Role Phone Unavailable Primary Care Provider Unavailabl e Source Comments Patient records contain information from all sites at [facility]. For routine questions regarding patient records, call [phone] during business hours, M-F 8:00 AM - 5:00 PM Central Time. Record requests for emergency care only can be directed to [phone] at any time.[facility] Allergies No known active allergies Medications Medication [...] Diagnosed Date Primary Malignant Neoplasm Of Prostate Cancer Staging:Clinical stage from 05/09/2023:Stage Unknown(cT2a, cNX, cM0, PSA: 6.8, Grade Group: 1) - Signed by Greer Sarah APRN, C.N.P. 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 Primary Malignant Neoplasm Of Prostate (HCC) (Primary Dx); Elevated Prostate-Specific Antigen 11/04/2023 8:07 AM CDT - 11/04/2023 11:59 PM CDT Hospital Encounter Department of Laboratory Medicine in [address] [address] Greer Sarah APRN, C.N.P. Primary Malignant Neoplasm Of Prostate (HCC) Discharge Disposition: Home or Self Care from Last 3 Months Immunizations Name Administration Dates Next Due Influenza high dose QV(65 years or older) (PF) 1 Influenza, Injectable, Quadrivalent 04/20/2021,1 08/14/2018 PPSV23 10/29/2009 RZV (SHINGRIX) 04/01/2023,04/20/2021 Td (Adult), adsorbed 06/13/2019 Td Preservative Free (TENIVAC, DECAVAC) 06/13/20 19 Tdap 10/29/2009 influenza vaccine QV(FLUBLOK) (18 years or older ) (PF) 04/20/2021,06/13/2019 influenza vaccine quad (FLUZ ONE/FLUARIX) (6 months and older)(PF) 05/05/2018,05/14/2015 Family History Medical History Relation Name Comments Prostate cancer Brother 1 Stroke Brother 1 COPD Brother 2 Prostate cancer Brother 2 Prostate cancer Brother 3 Heavy smoker (over 20 per day) Father Breast cancer Mother in 1982 Breast cancer Sister 1 Breast cancer Sister 2 Cancer Sister 3 Uterine cancer Sister 4 Relation Name Status Comments Brother 1 Brother 2 Brother 3 Alive Father Mother Sister 1 Sister 2 Alive Sister 3 Alive Sister 4 Alive Social History Tobacco Use Types Packs/Day Years Used Date Smoking Tobacco: Former Cigarettes 0.3 6 0 06/27/1965 - 06/27/1971 Pipe 06/27/1965 - 0 06/27/1971 Cigars 06/27/1965 - 0 06/27/1971 Smokeless Tobacco: Never Tobacco Cessation:Counseling Given: Not Answered Alcohol Use Standard Drinks/Week Comments Not Currently 0 (1 standard drink = 0.6 oz pur e alcohol) [facility] Utilities Answer Date Recorded In the past 12 months has e [employer], gas, oil, or water [employer] threatened to shut off services in your home? No 11/11/2023 Exercise Vital Sign Answer Date Recorde d On average, how many days pe r week do you engage in moderate to strenuous exercise (like a brisk walk)? Patient declined On average, how many minutes do you engage in exercise at this level? Patient declined 11/11/2023 Hunger Vital Sign Answer Date Recorded Within the past 12 months, y ou worried that your food would run out before you got the money to buy more. Never true 11/11/19 24 Within the past 12 months, t he food you bought just didn't last and you didn't have money to get more. Never true 11/11/2023 PRAPARE - Transportation Answer Date Re corded In the past 12 months, has l ack of transportation kept you from medical appointments or from getting medications? No 10/25 In the past 12 months, has l ack of transportation kept you from meetings, work, or from getting things needed for daily living? No 11/11/2023 Nutrition Answer Date Recorded On average, how many serving s of fruits and vegetables do you eat per day (serving size is equal to 1 cup or approximately the size of a tennis ball)? 0-2 11/11/2023 Dental Answer Date Recorded Dental: Regular Dentist No 11/11/19 24 Employment Answer Date Recorded Employment status Employed and actively working without restrictions 11/11/2023 Housing Stability Answer Date Recorded What is your living situation today? I have a [facility] place to live 11/11/2023 Sex and Gender Information Value Date Recorded Sex Assigned at Male 11/11/2023 10:31 AM CDT Gender Identity Male 11/11/2023 10:31 AM CDT Sexual Orientation Straight 11/11/2023 10 :31 AM CDT Plan of Treatment Health Maintenance Due Date Last Done Comments [...] history exists Zoster Vaccines Completed 04/01/2023, 04/20/2021 Procedures Procedure Name Priority Date/Time Associated Diagnosis Comments PROSTATE-SPECIFIC AG (PSA) DIAGNOSTIC, S Routine 11/04/2023 10:01 AM CDT Primary Malignant Neoplasm Of Prostate (HCC) from Last 3 Months Results * (ABNORMAL) PSA (Prostate-Specific Antigen), Diagnostic [...] 11/04/2023 3:22 PM CDT Greer Sarah APRN, C.N.PJuan LAB BLOOD ADD-ON [facility] [address] [place] [address], [facility] OW[facility] [place] [address] [place] [address] from Last 3 Months
--- OUTSIDE RECORDS SUMMARY | 2023-11-16 18:55 | XMS_ITS | Encounter Summary ---
Author Organization [facility] Address [address] [place] [address] Care Team Providers Care Auto Body Repair Technician Name Role Phone Unavailable Primary Care Provider Unavailabl e Reason for Referral * Outpatient (Routine) - Authorized Specialty Diagnoses / Procedures Referred By Antonino stevens Referred To Contact Urology Greer Sarah APRN, C.N.P. [address] [address] [facility] Region Referral ID Status Reason Start Date Expiration Date V isits Requested Visits Authorized [id number] Authorized 11/14/2023 05/15/2025 1 1 Reason for Visit * Reason Comments Follow-up 6 month Prostate Cancer * Outpatient (Routine) - Closed Specialty Diagnoses / Procedures Referred By Antonino stevens Referred To Contact Urology Greer Sarah APRN, C.N.P. [address] [address] [facility] Region Referral ID Status Reason Start Date Expiration Date Visits Re quested Visits Authorized [id number] Closed 05/13/2023 05/12/2026 1 1 Encounter Details Date Type Department Care Team (Late st Contact Info) Description 11/14/2023 1:30 PM CDT Office Visit Department of Urology in [place] [address] [place] [phone] Greer Sarah APRN, C.N.P. [address] [address] Primary Malignant Neoplasm Of Prostate (HCC) (Primary Dx); Elevated Prostate-Specific Antigen Social History Tobacco Use Types Packs/Day Years Used Date Smoking Tobacco: Former Cigarettes 0.3 6 0 06/27/1965 - 06/27/1971 Pipe 06/27/1965 - 0 06/27/1971 Cigars 06/27/1965 - 0 06/27/1971 Smokeless Tobacco: Never Tobacco Cessation:Counseling Given: Not Answered Alcohol Use Standard Drinks/Week Comments Not Currently 0 (1 standard drink = 0.6 oz pur e alcohol) [facility] Utilities Answer Date Recorded In the past 12 months has th e [employer], gas, oil, or water [employer] threatened to shut off services in your [...] money to buy more. Never true 11/11/19 Within the past 12 months, t he [...] Date Recorded Dental: Regular Dentist No 11/11/19 Employment Answer Date Recorded Employment status Employed and actively working without restrictions 11/11/2023 Housing Stability Answer Date Recorded What is your living situation today? I have a [place] place to live 11/11/2023 Sex and Gender Information Value Date Recorded Sex Assigned at Male 11/11/2023 10:31 AM CDT Gender Identity Male 11/11/2023 10:31 AM CDT Sexual Orientation Straight 11/11/2023 10 :31 AM CDT documented as of this encounter Progress Notes * Greer Sarah APRN, C.N.P. - 11/14/2023 1:30 PM CDT SUBJECTIVE CHIEF COMPLAINT/REASON FOR VISIT Chief Complaint Patient presents with Follow-up 6 month Prostate Cancer HISTORY OF PRESENT ILLNESS Yuri is a pleasant 68-year-old male here today for follow-up for prostate cancer. He had prostate biopsy on May 09, 2023 that showed a small amount of [place] 3 + 3 prostate cancer on the right side. He elected for active surveillance with no treatment plan time. He does have family history sig nificant for 2 brothers with prostate cancer and several sisters with breast cancer. He denies any changes in urinary symptoms. He decreased his coffee intake and is now getting up less at night. Cancer Staging Primary Malignant Neoplasm Of Prostate (HCC) Staging form: Prostate, AJCC 8th Edition - Clinical stage from 05/09/2023: Stage Unknown (cT2a, cNX, cM0, PSA: 6.8, Grade Group: 1) The following portions of the patient's history were reviewed and updated as appropriate: allergies, current medications, family history, medical history, social history, surgical history, and problem list. REVIEW OF SYSTEMS Gastrointestinal: - Negative for constipation and diarrhea. Genitourinary: - Negative for incontinence, difficulty urinating, pain with urination, blood in urine, urgency andfrequent urination. Musculoskeletal: - Negative for back pain. OBJECTIVE There were no vitals filed for this visit. PHYSICAL EXAM Vitals and nursing note reviewed. General: Well developed, well nourished, well groomed male in no acute distress. Neurological: Alert, cooperative, oriented x3. Appropriate mood and affect. Abdomen: Soft, non-tender, non-distended Extremities: Warm, without edema or ulcerations. Results for orders placed or performed during the hospital encounter of 11/04/23 PSA (Prostate-Specific Antigen), Diagnostic Result Value Ref Range Prostate-Specific Ag 11.0 (H) <=4.5 ng/mL ASSESSMENT / PLAN 1. Primary Malignant Neoplasm Of Prostate (HCC) 2. Elevated Prostate-Specific Antigen PSA level has increased, we discussed options including continued monitoring, repeat biopsy, repeatimaging, consult to Radiation Oncology. After some discussion, we will recheck PSA in approximately3 months and have him return to clinic at that time. All questions answered today. - PSA (Prostate-Specific Antigen), Diagnostic; Future Signed by: Greer Sarah APRN, C.N.P. 11/14/2023 1:29 PM CDT documented in this encounter Plan of Treatment Scheduled Orders Name Type Priority Associated Diagnoses Orde r Schedule PSA (Prostate-Specific Antigen), Diagnostic Lab Routine Primary Malignant Neoplasm Of Prostate (HCC) Elevated Prostate-Specific Antigen Expected: 02/14/2024, Expires: 11/13/2024 Scheduled Referrals Name Type Priority Associated Diagnoses Orde r Schedule Urology office visit (clinic) Outpatient Referral Routine Expected: 02/14/2024 (Approximate), Expires: 02/13/2025 documented as of this encounter Visit Diagnoses Diagnosis Primary Malignant Neoplasm Of Prostate (HCC)- Primary Elevated Prostate-Specific Antigen documented in this encounter
--- OUTSIDE RECORDS SUMMARY | 2023-11-16 18:55 | XMS_ITS | Referral Summary ---
Author Organization [facility] Address [address] [place] [address] Care Team Providers Care Heavy Equipment Diesel Mechanic Name Role Phone Unavailable Primary Care Provider Unavailabl e Source Comments Patient records contain information from all sites at [facility]. For routine questions regarding patient records, call [phone] during business hours, M-F 8:00 AM - 5:00 PM Central Time. Record requests for emergency care only can be directed to [phone] at any time.[facility] Encounters Date Type Department Care Team Description 11/14/2023 1:30 PM CDT Office Visit Department of Urology in [address] [phone] Greer Sarah APRN, C.N.P. Primary Malignant Neoplasm Of Prostate (HCC) (Primary Dx); Elevated Prostate-Specific Antigen 11/04/2023 8:07 AM CDT - 11/04/2023 11:59 PM CDT Hospital Encounter Department of Laboratory Medicine in [address] [address] Greer Sarah APRN, C.N.P. Primary Malignant Neoplasm Of Prostate (HCC) Discharge Disposition: Home or Self Care from Last 3 Months Allergies No known active allergies Medications Medication [...] Grade Group: 1) - Signed by Greer Sarah, CLAUDIA, C.N.P. 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 I have a [facility] place to live 11/11/2023 Sex and Gender Information Value Date Recorded Sex Assigned at Male 11/11/2023 10:31 AM CDT Gender Identity Male 11/11/2023 10:31 AM CDT Sexual Orientation Straight 11/11/2023 10 :31 AM CDT Plan of Treatment Not on file Procedures Procedure Name Priority Date/Time Associated Diagnosis Comments PROSTATE-SPECIFIC AG (PSA) DIAGNOSTIC, S Routine 11/04/2023 10:01 AM CDT Primary Malignant Neoplasm Of Prostate (HCC) from Last 3 Months Results * (ABNORMAL) PSA (Prostate-Specific Antigen), Diagnostic (11/04/2023 10:01 AM CDT) Prostate-Specific Ag 11.0(H) <=4.5 ng/mL 11/04/2023 3:53 PM CDT [facility] Comment: ----ADDITIONAL INFORMATION---- The testing method is an electrochemiluminescence assay manufactured by [employer] and performed on the Modular or Roopa system. Values obtained with different assay methods or kits may be different and cannot be used interchangeably. Test results cannot be interpreted as absolute evidence for the presence or absence of malignant disease. Blood (Blood, Venous) 11/04/2023 10:01 AM CDT 11/04/2023 3:22 PM CDT Greer Sarah APRN, C.N.P. LAB BLOOD ADD-ON [facility] [address] [place] [address], [facility] [place] [address] [place] [address] from Last 3 Months
[2023-11-16 19:24] LABS: Lactate* 2.3 mmol/L (0.5-1.9)
== END 2023-11-16 20:30 | disposition home or self-care (01) ==
PROVIDERS: Emergency Provider Student in an Organized Health Care Education/Training Program; PCP Family Medicine
DX: E86.0 Dehydration (principal); R55 Syncope and collapse
CPT/HCPCS: 36415; 70450; 72125; 80053; 82947; 83605; 84484; 85025; 93005; 96360; 99283; 99284; 99285; J7030; J7120

== ENCOUNTER 2024-06-01 09:18 | Outpatient (CLI) | payer OTHER, SELFPAY ==
--- OUTSIDE RECORDS SUMMARY | 2024-06-01 09:22 | XMS_ITS | Clinical Summary ---
Author Organization [facility] Address [address] [place] [address] Care Team Providers Care Respiratory Physician Name Role Phone Unavailable Primary Care Provider Unavailabl e Source Comments Patient records contain information from all sites at [facility]. For routine questions regarding patient records, call [phone] during business hours, M-F 8:00 AM - 5:00 PM Central Time. Record requests for emergency care only can be directed to [phone] at any time.[facility] Allergies No known active allergies Medications amLODIPine (NORVASC) 10 mg tablet Take 10 mg by mouth daily. 3 Active atenoloL (TENORMIN) 50 mg tablet Take 1 tablet by mouth daily. 3 Active Trulicity 3 mg/0.5 mL injection Inject 3 mg under the skin every 7 (seven) days. 3 Active hydroCHLOROthia zide (HYDRODIURIL) 25 mg tablet Take 1 tablet by mouth 2 (two) times a day. 3 Active lisinopriL (PRINIVIL,ZESTR IL) 40 mg tablet Take 40 mg by mouth daily. 3 Active metFORMIN (GLUCOPHAGE) 1,000 mg tablet Take 1,000 mg by mouth 2 (two) times a day with meals. 3 Active repaglinide (PRANDIN) 2 mg tablet Take 2 mg by mouth 2 (two) times a day before breakfast and dinner. 3 Active simvastatin (ZOCOR) 20 mg tablet Take 20 mg by mouth at bedtime. 3 Active pioglitazone (ACTOS) 15 mg tablet Take 15 mg by mouth daily. 3 Active Active Problems Problem Noted Date Diagnosed [...] = 0.6 oz pur e alcohol) [facility] Utilities Answer Date Recorded In the past 12 months has th e electric, gas, oil, or water company threatened to shut off services in your [...] your living situation today? I have a [facility] place to live 11/11/2023 Sex and Gender Information Value Date Recorded Sex Assigned at Male 11/11/2023 10:31 AM CDT Legal Sex Male 1:19 PM CDT Gender Identity Male 11/11/2023 10:31 AM CDT Sexual Orientation Straight 11/11/2023 10 :31 AM CDT Plan of Treatment Health Maintenance Due Date Last Done Comments Abdominal Aortic Aneurysm (AAA) Screen 1956 CT Colonography 1956 Cologuard 1956 Colonoscopy 1956 Colorectal Cancer Screening 1956 Creatinine Level (Kidney Function Test) 1956 Diabetic Office Visit with Foot Exam 1956 Dilated Eye Exam 1956 FIT 1956 Hemoglobin A1C 1956 Hepatitis C Screening 1956 Lipid (Cholesterol) Screening 1956 Office Visit for Blood Pressure Check / Re-check 1956 Potassium Level 1956 Sodium Level 1956 Urine Albumin 1956 Pneumococcal vaccine (65+ years) (2 of 2 - PCV) 10/29/2010 10/29/2009 Hepatitis B Vaccines (1 of 3 - Risk 3-dose series) 2016 Depression Screening (Annual PHQ-2) 06/27/2023 Fall Risk Screen (Annual) 06/27/2023 COVID-19 Vaccine (2 - 2023- season) 2024 01/26/2021 Influenza Vaccine (#1) 2024 , 04/20/2021, 04/20/2021, Additional history exists DTaP,Tdap,and Td Vaccines (4 - Td or Tdap) 06/13/2029 06/13/2019, 06/13/2019, 10/29/2009 Zoster Vaccines Completed 04/01/2023, 04/20/2021 IPV Vaccines Aged Out No longer eligi ble based on patient's age to complete this topic Insurance [employer]
--- OUTSIDE RECORDS SUMMARY | 2024-06-01 09:22 | XMS_ITS | Referral Summary ---
Author Organization [facility] Address [address] [place] [address] Care Team Providers Care Anvil Worker Name Role Phone Unavailable Primary Care Provider Unavailabl e Source Comments Patient records contain information from all sites at [facility]. For routine questions regarding patient records, call [phone] during business hours, M-F 8:00 AM - 5:00 PM Central Time. Record requests for emergency care only can be directed to [phone] at any time.[facility] Allergies No known active allergies Medications amLODIPine [...] drink = 0.6 oz pur e alcohol) [facility] Utilities Answer Date Recorded In the past 12 months has e [employer], gas, oil, or water [employer] threatened to shut off services in your [...] your living situation today? I have a [facility] place to live 11/11/2023 Sex and Gender Information Value Date Recorded Sex Assigned at Male 11/11/2023 10:31 AM CDT Legal Sex Male 1:19 PM CDT Gender Identity Male 11/11/2023 10:31 AM CDT Sexual Orientation Straight 11/11/2023 10 :31 AM CDT Plan of Treatment Not on file Insurance [employer] Member Subscriber Plan / Payer (Ef fective 2021-Present) Name:Yuri Villatoro Relation to Subscriber:Self Name:Yuri Villatoro Payer ID:[id number] (NAIC) Group ID:[id number] Type:MICHELLE Address: [facility] [id number] [place] [id number]
--- OUTSIDE RECORDS SUMMARY | 2024-06-01 09:22 | XMS_ITS ---
Author Organization [facility] Address [address] [place] [address] Care Team Providers Care Pigment Making Supervisor Name Role Phone Unavailable Unavailable Unavailable Surgery Details Not on file Complications Check Surgery Details section. Procedure Estimated Blood Loss Check Surgery Details section. Procedure Findings Check Surgery Details section. Procedure Specimens Taken Check Surgery Details section.
== END 2024-06-01 09:19 | disposition home or self-care (01) ==
PROVIDERS: PCP Family Medicine; Visit Provider Family Medicine
DX: E78.00 Pure hypercholesterolemia, unspecified (principal); I10 Essential (primary) hypertension
CPT/HCPCS: 80048; 80061